=== PATIENT | male | born 1980 | race Hispanic/Latino ===

== ENCOUNTER 2019-05-19 16:46 | Emergency (ER) | payer BC, SELFPAY ==
[2019-05-19 17:24] LABS: Absolute Lymphocytes (CBC) 3.1 K/uL (0.7-4.9); Basophils % 0.6 % (0-1.3); Lymphocytes % 34.9 % (15.3-44.8); MPV 8.8 fL (7.6-11.3); RBC Red Blood Cell Count 5.03 M/uL (4.33-5.43)
--- NOTE | 2019-05-19 17:27 | RAD REPORT ---
EXAM DESCRIPTION: Maulik Single View05/19/2019 5:21 pm CLINICAL HISTORY: Chest pain COMPARISON: 2017 FINDINGS: The lungs appear clear of acute infiltrate. The heart is normal size IMPRESSION: No acute abnormalities displayed
[2019-05-19 17:32] LABS: Protime INR 0.97
[2019-05-19 17:40] LABS: ALT/SGPT 37 U/L (12-78); AST/SGOT 26 U/L (15-37); Albumin 3.8 g/dL (3.4-5.0); Alkaline Phosphatase 75 U/L (45-117); BUN Blood Urea Nitrogen 17 mg/dL (7-18); Bicarbonate 27 mmol/L (21-32); Bilirubin Direct 0.3 mg/dL (0-0.2); Bilirubin Total 1.6 mg/dL (0.2-1.0); Creatine Phosphokinase 186 U/L (39-308); Glucose Level 93 mg/dL (74-106); Magnesium 2.1 mg/dL (1.8-2.4); NT PRO-BNP 25 pg/mL (<125); Potassium 3.8 mmol/L (3.5-5.1); Protein, Total 7.4 g/dL (6.4-8.2); Sodium Level 140 mmol/L (136-145); Troponin (Emerg Dept Use Only) < 0.02 ng/mL (0.0-0.045)
[2019-05-19 17:43] LABS: Barbiturates NEGATIVE (NEGATIVE); Benzodiazepines NEGATIVE (NEGATIVE); Cocaine NEGATIVE (NEGATIVE); METHAMPHETAM NEGATIVE (NEGATIVE); Methadone NEGATIVE (NEGATIVE); Opiates NEGATIVE (NEGATIVE); Phencyclidine NEGATIVE (NEGATIVE); THC Cannibis NEGATIVE (NEGATIVE)
[2019-05-19 18:03] LABS: Urine Blood NEGATIVE (NEG); Urine Glucose NEGATIVE (NEG); Urine Protein NEGATIVE (NEG); Urine Specific Gravity 1.025 (1.005-1.030); Urine pH 6.5 (5.0-7.0)
[2019-05-19] MEDS ORDERED: NA CHLORIDE 0.9% 1,000 ML ONE (18:06)
--- NOTE | 2019-05-19 20:00 | RAD REPORT ---
EXAM DESCRIPTION: US - Abdomen Exam Limited - 05/19/2019 7:33 pm CLINICAL HISTORY: Abdominal pain./elevated bilirubin COMPARISON: None. FINDINGS: A 15 millimeter gallstone. Gallbladder wall borderline thickened The biliary tree is normal caliber. IMPRESSION: Cholelithiasis. Gallbladder wall is borderline thickened
--- NOTE | 2019-05-19 21:25 | ER ---
Nurse's Notes [facility] Name: Miguel Angel Pride Jr Age: 38 yrs Sex: Male : 1980 Arrival Date: 05/19/2019 Time: 16:52 Bed 4 Private MD: Diagnosis: Chest pain, unspecified;Cholelithiasis Presentation: 05/18 16:53 Chief complaint: EMS states: Pt reports intermittent chest pain that began around lunch ph time, had 3 episodes that went away after a few minutes, then had another episode that did not resolve, also reports SOB, pain worse w/ inspiration, denies N/V, 12 lead normal, BP initially slightly elevated \T\ 170s systolic, 324 ASA and nitro x 1 administered, pt denies pain upon arrival to ED, denies cardiac hx. Coronavirus screen: The patient has NOT traveled to a country currently being monitored by the CDC within the last 14 days. The patient has NOT had contact with any known and/or suspected case of coronavirus. Ebola Screen: No symptoms or risks identified at this time. Initial Sepsis Screen: Does the patient meet any 2 criteria? No. Patient's initial sepsis screen is negative. Does the patient have a suspected source of infection? No. Patient's initial sepsis screen is negative. Risk Assessment: Do you want to hurt yourself or someone else? Patient reports no desire to harm self or others. 16:53 Method Of Arrival: EMS: [facility] 16:53 Acuity: MARCIE 3 ph Historical: - Allergies: 16:59 No Known Allergies; ph - Home Meds: 16:59 None [Active]; ph - PMHx: 16:59 Anxiety; ph - Immunization history:: Adult Immunizations unknown. - Social history:: Smoking status: Patient denies any tobacco usage or history of. Patient/guardian denies using street drugs. Screenin:59 Abuse screen: Denies threats or abuse. Denies injuries from another. Nutritional ph screening: No deficits noted. Tuberculosis screening: No symptoms or risk factors identified. Fall Risk None identified. Assessment: 17:00 General: Appears in no apparent distress. comfortable, well groomed, Behavior is calm, ph cooperative, appropriate for age, Denies fever, feeling ill. Pain: Complains of pain in anterior aspect of left upper chest Pain does not radiate. Pain currently is 0 out of 10 on a pain scale. at worst was 8 out of 10 on a pain scale. Quality of pain is described as sharp, stabbing, Pain began approx 1200. Neuro: Level of Consciousness is awake, alert, obeys commands, Oriented to person, place, time, situation. Cardiovascular: Reports chest pain, shortness of breath, Capillary refill < 3 seconds in bilateral fingers Patient's skin is warm and dry. Chest pain quality is sharp, stabbing, is located in left anterior chest wall began 4 hours prior to arrival episodes are intermittent denies pain at this time. Respiratory: Airway is patent Respiratory effort is even, unlabored, Respiratory pattern is regular, symmetrical. Derm: Skin is intact, is healthy with good turgor, Skin is pink, warm \T\ dry. Musculoskeletal: Circulation, motion, and sensation intact. Range of motion: intact in all extremities. 18:16 Reassessment: Patient appears in no apparent distress at this time. Patient and/or ph family updated on plan of care and expected duration. Pain level reassessed. Patient is alert, oriented x 3, equal unlabored respirations, skin warm/dry/pink. Pt resting comfortably, VSS, denies pain at this time. 20:26 Reassessment: Patient appears in no apparent distress at this time. Patient and/or mg2 family updated on plan of care and expected duration. Pain level reassessed. Patient is alert, oriented x 3, equal unlabored respirations, skin warm/dry/pink. 21:02 Reassessment: repeat EKG and Troponin done. awaiting result. rv 21:38 Reassessment: Patient denies pain at this time. Patient states feeling better. mg2 Vital Signs: 16:53 BP 120 / 95; Pulse 64; Resp 18; Temp 97.3; Pulse Ox 96% on R/A; Weight 104.33 kg; ph Height 5 ft. 9 in. (175.26 cm); Pain 0/10; 16:58 BP 120 / 95; Pulse 64; Resp 18; Pulse Ox 99% on R/A; Pain 0/10; ph 18:17 BP 129 / 92; Pulse 71; Resp 18; Pulse Ox 99% on R/A; ph 20:19 Pulse 54; Resp 19; Pulse Ox 97% ; rv 20:25 BP 111 / 69; Pulse 58; Resp 18; Pulse Ox 95% on R/A; mg2 21:02 BP 106 / 57; Pulse 50; Resp 16; Pulse Ox 97% on R/A; rv 16:53 Body Mass Index 33.96 (104.33 kg, 175.26 cm) ph ED Course: 16:52 Patient arrived in ED. ph 16:52 Alyson Aleman FNP-C is PHCP. snw 16:52 Jimmie Denny MD is Attending Physician. snw 16:53 PHCP role handed off by Alyson Aleman FNP-C cp 16:53 Meño Crane PA is PHCP. cp 16:58 Triage completed. ph 16:59 Arm band placed on. ph 16:59 No provider procedures requiring assistance completed. Maintain EMS IV. Dressing ph intact. Good blood return noted. Site clean \T\ dry. Gauge \T\ site: 18 LAC. Patient maintains SpO2 saturation greater than 95% on room air. 17:00 Patient has correct armband on for positive identification. Placed in gown. Bed in low ph position. Call light in reach. Side rails up X2. monitor technician on. Pulse ox on. NIBP on. Door closed. Noise minimized. Warm blanket given. Head of bed elevated. 17:09 Robby Domingo, RN is Primary Nurse. em 17:21 XRAY Chest (1 view) In Process Unspecified. EDMS 18:22 EKG done, by ED staff, reviewed by Meño CORDERO. em1 19:34 US Abdomen Limited In Process Unspecified. EDMS 21:22 Hunter Rock MD is Referral Physician. cp 21:39 IV discontinued, intact, bleeding controlled, No redness/swelling at site. Pressure mg2 dressing applied. Administered Medications: 18:16 Drug: NS 0.9% 1000 ml Route: IV; Rate: 1 bolus; Site: left antecubital; ph 21:39 Follow up: Response: No adverse reaction; IV Intake: 1000ml mg2 Intake: 21:39 IV: 1000ml; Total: 1000ml. mg2 Outcome: 21:23 Discharge ordered by . cp 21:39 Discharged to home ambulatory, with family. mg2 21:39 Condition: stable 21:39 Discharge instructions given to patient, family, Instructed on discharge instructions, follow up and referral plans. medication usage, Demonstrated understanding of instructions, follow-up care, medications, Prescriptions given X 1. 21:39 Patient left the ED. mg2 Signatures: Dispatcher [employer] EDAlyson Ernandez, SAP BODS DEVELOPER-C SAP BODS DEVELOPER-Csnw Robby Domingo, RN RN Lauri Lozano Patricia, RN RN Meño Rodríguez PA PA cp [place], Michele, RN RN mg2 Joaquin Adams RN RN rv
--- NOTE | 2019-05-19 21:25 | EDPHYS ---
Physician Documentation [facility] Name: Miguel Angel Pride Jr Age: 38 yrs Sex: Male : 1980 Arrival Date: 05/19/2019 Time: 16:52 Bed 4 Private MD: ED Physician Jimmie Denny HPI: 05/18 17:00 This 38 yrs old Male presents to ER via EMS with complaints of Chest Pain. cp 17:00 The patient or guardian reports chest pain that is located primarily in the anterior cp chest wall, left. 17:00 The pain does not radiate. Associated signs and symptoms: Pertinent negatives: cp abdominal pain, cough, diaphoresis, dizziness, lower extremity pain, lower extremity swelling, near syncope, palpitations, recent travel, shortness of breath, syncope. The chest pain is described as sharp. Duration: The patient or guardian reports multiple episodes, that are intermittent. Modifying factors: The symptoms are alleviated by nothing. the symptoms are aggravated by nothing. Severity of pain: in the emergency department the pain has resolved and did so just prior to arrival, patient was given oral aspirin and nitro by EMS but reports pain resolved prior to being given medications. EMS care prior to arrival includes: aspirin, nitroglycerin, x 1. Historical: - Allergies: 16:59 No Known Allergies; ph - Home Meds: 16:59 None [Active]; ph - PMHx: 16:59 Anxiety; ph - Immunization history:: Adult Immunizations unknown. - Social history:: Smoking status: Patient denies any tobacco usage or history of. Patient/guardian denies using street drugs. ROS: 17:05 Constitutional: Negative for body aches, chills, fever, poor PO intake. cp 17:05 Eyes: Negative for injury, pain, redness, and discharge. cp 17:05 Cardiovascular: Positive for chest pain, Negative for edema, palpitations. cp 17:05 ENT: Negative for drainage from ear(s), ear pain, sore throat, difficulty swallowing, cp difficulty handling secretions. 17:05 Respiratory: Negative for cough, shortness of breath, wheezing. 17:05 Abdomen/GI: Negative for abdominal pain, nausea, vomiting, and diarrhea, constipation, black/tarry stool, rectal bleeding. 17:05 Back: Negative for pain at rest, pain with movement, radiated pain. 17:05 Skin: Negative for rash. 17:05 Neuro: Negative for headache, weakness. 17:05 All other systems are negative. Exam: 17:10 Constitutional: The patient appears in no acute distress, alert, awake, cp non-diaphoretic, non-toxic, well developed, well nourished. 17:10 Head/Face: Normocephalic, atraumatic. cp 17:10 Eyes: Periorbital structures: appear normal, Conjunctiva: normal, no exudate, no injection, Sclera: no appreciated abnormality, Lids and lashes: appear normal, bilaterally. 17:10 ENT: External ear(s): are unremarkable, Nose: is normal, Mouth: Lips: moist, Oral mucosa: pink and intact, moist, Posterior pharynx: is normal, airway is patent, no erythema, no exudate. 17:10 Chest/axilla: Inspection: normal, Palpation: is normal, no crepitus, no tenderness. 17:10 Cardiovascular: Rate: normal, Rhythm: regular. 17:10 Respiratory: the patient does not display signs of respiratory distress, Respirations: normal, no use of accessory muscles, no retractions, no splinting, no tachypnea, labored breathing, is not present, Breath sounds: are clear throughout, no decreased breath sounds, no stridor, no wheezing. 17:10 Abdomen/GI: Inspection: abdomen appears normal, Bowel sounds: active, all quadrants, Palpation: abdomen is soft and non-tender, in all quadrants, rebound tenderness, is not appreciated, voluntary guarding, is not appreciated, involuntary guarding, is not appreciated. 17:10 Back: pain, is absent, ROM is normal. 17:10 Skin: no rash present. 17:10 Neuro: Orientation: to person, place \T\ time. Mentation: is normal, Cerebellar function: is grossly normal, Motor: moves all fours, strength is normal, Sensation: is normal. 18:25 ECG was reviewed by the Attending Physician. cp 20:50 ECG was reviewed by the Attending Physician. cp Vital Signs: 16:53 BP 120 / 95; Pulse 64; Resp 18; Temp 97.3; Pulse Ox 96% on R/A; Weight 104.33 kg; ph Height 5 ft. 9 in. (175.26 cm); Pain 0/10; 16:58 BP 120 / 95; Pulse 64; Resp 18; Pulse Ox 99% on R/A; Pain 0/10; ph 18:17 BP 129 / 92; Pulse 71; Resp 18; Pulse Ox 99% on R/A; ph 20:19 Pulse 54; Resp 19; Pulse Ox 97% ; rv 20:25 BP 111 / 69; Pulse 58; Resp 18; Pulse Ox 95% on R/A; mg2 21:02 BP 106 / 57; Pulse 50; Resp 16; Pulse Ox 97% on R/A; rv 16:53 Body Mass Index 33.96 (104.33 kg, 175.26 cm) ph MDM: 16:55 Patient medically screened. cp 21:23 Data reviewed: vital signs, nurses notes, lab test result(s), EKG, radiologic studies, cp plain films. 21:23 Differential diagnosis: abnormal EKG, acute myocardial infarction, acute pericarditis, cp costochondritis, pleurisy, pneumonia, pneumothorax, pulmonary embolus. Test interpretation: by ED physician or midlevel provider: ECG, plain radiologic studies, chest xray negative for infiltrates. Counseling: I had a detailed discussion with the patient and/or guardian regarding: the historical points, exam findings, and any diagnostic results supporting the discharge/admit diagnosis, lab results, radiology results, the need for outpatient follow up, an technical sourcing recruiter, to return to the emergency department if symptoms worsen or persist or if there are any questions or concerns that arise at home. Response to treatment: the patient's symptoms have resolved after treatment, the patient's pain is gone, and as a result, I will discharge patient. 21:23 Special discussion: Based on the patient's history, exam, and Dx evaluation, there is cp no indication for emergent intervention or inpatient Tx. It is understood by the patient/guardian that if the Sx's persist or worsen they need to return immediately for re-evaluation. 05/18 16:53 Order name: Basic Metabolic Panel; Complete Time: 18:16 snw 05/18 18:16 Interpretation: Normal except: CL 108; GFR 75. cp 05/18 16:53 Order name: CBC with Diff; Complete Time: 17:35 snw 05/18 17:35 Interpretation: Within normal limits. cp 05/18 16:53 Order name: LFT's; Complete Time: 18:16 snw 05/18 18:16 Interpretation: Normal except: BILIT 1.6; BILID 0.3; GLOB 3.6. cp 03/ 16:53 Order name: Magnesium; Complete Time: 18:16 snw 05/18 16:53 Order name: NT PRO-BNP; Complete Time: 18:16 snw 05/18 16:53 Order name: PT-INR; Complete Time: 17:35 snw 05/18 16:53 Order name: Troponin (emerg Dept Use Only); Complete Time: 18:16 snw 05/18 16:53 Order name: XRAY Chest (1 view); Complete Time: 18:16 snw 05/18 16:53 Order name: DD; Complete Time: 17:35 snw 05/18 16:54 Order name: UDS; Complete Time: 18:16 cp 05/18 16:54 Order name: CPK; Complete Time: 18:16 cp 05/18 17:29 Order name: Urine Dipstick--Ancillary (enter results); Complete Time: 18:16 bd 05/18 19:04 Order name: US Abdomen Limited; Complete Time: 20:08 cp 05/18 20:08 Interpretation: Report reviewed. cp 05/18 20:36 Order name: Troponin I; Complete Time: 21:22 cp 05/18 21:22 Interpretation: Reviewed. cp 05/18 16:53 Order name: EKG; Complete Time: 16:54 snw 05/18 16:53 Order name: Cardiac monitoring; Complete Time: 17:02 snw 05/18 16:53 Order name: EKG - Nurse/Tech; Complete Time: 17:32 snw 05/18 16:53 Order name: IV Saline Lock; Complete Time: 17:02 snw 05/18 16:53 Order name: Labs collected and sent; Complete Time: 17:32 snw 05/18 16:53 Order name: O2 Per Protocol; Complete Time: 17:02 snw 05/18 16:53 Order name: O2 Sat Monitoring; Complete Time: 17:02 snw 05/18 19:04 Order name: NPO; Complete Time: 19:12 cp 05/18 20:36 Order name: EKG; Complete Time: 20:37 cp 05/18 20:36 Order name: EKG - Nurse/Tech; Complete Time: 20:51 cp EC:25 Rate is 60 beats/min. Rhythm is regular. IL interval is normal. QRS interval is cp prolonged at 108 msec. QT interval is normal. T waves are Inverted in lead III. Interpreted by me. Reviewed by me. 20:50 Rate is 49 beats/min. Rhythm is regular. IL interval is normal. QRS interval is normal. cp QT interval is normal. T waves are Flattened in lead V2. Interpreted by me. Reviewed by me. Administered Medications: 18:16 Drug: NS 0.9% 1000 ml Route: IV; Rate: 1 bolus; Site: left antecubital; ph 21:39 Follow up: Response: No adverse reaction; IV Intake: 1000ml mg2 Disposition: 05/19 10:51 Co-signature as Attending Physician, Jimmie Denny MD I agree with the assessment and kdr plan of care. Disposition: 05/19/19 21:23 Discharged to Home. Impression: Chest pain, unspecified, Cholelithiasis. - Condition is Stable. - Discharge Instructions: Nonspecific Chest Pain, Cholelithiasis, Aspirin and Your Heart. - Prescriptions for Ibuprofen 800 mg Oral Tablet - take 1 tablet by ORAL route every 8 hours As needed take with food; 30 tablet. - Work release form, Medication Reconciliation Form, Thank You Letter, Antibiotic Education, Prescription Opioid Use form. - Follow up: Hunter Rock MD; When: Tomorrow; Reason: Recheck today's complaints. - Problem is new. - Symptoms have improved. Signatures: Dispatcher [employer] EDJimmie Altamirano MD MD [facility] Alyson Aleman, ENVIRONMENTAL HEALTH SAFETY ENGINEER-C ENVIRONMENTAL HEALTH SAFETY ENGINEER-[place] Gavi Chow RN RN ph Meño Crane PA PA cp Antonio Ahumada, COLE RN mg2 Corrections: (The following items were deleted from the chart) 03 21:39 21:23 05/19/2019 21:23 Discharged to Home. Impression: Chest pain, unspecified; mg2 Cholelithiasis. Condition is Stable. Forms are Medication Reconciliation Form, Thank You Letter, Antibiotic Education, Prescription Opioid Use. Follow up: Hunter Rock; When: Tomorrow; Reason: Recheck today's complaints. Problem is new. Symptoms have improved. cp
[2019-05-19 21:48] VITALS: TEMP 97.3
[2019-05-19 21:55] VITALS: BP 106/57; O2SAT 97
--- NOTE | 2019-05-20 11:38 | EKG ---
Test Date: 2019-05-19 Test Time: 20:43:23 Rug Dry Room Attendant: ALE MEASUREMENT RESULTS: Intervals: Rate: 49 TX: 140 QRSD: 84 QT: 424 QTc: 383 [place]: P: 27 TX: 140 QRS: -1 T: 10 INTERPRETIVE STATEMENTS: Sinus bradycardia with sinus arrhythmia Cannot rule out Inferior infarct, age undetermined Abnormal ECG Compared to ECG 05/19/2019 18:17:20 Myocardial infarct finding now present Sinus rhythm no longer present Electronically Signed On 05-20-19 11:36:45 SURVEY SUPERINTENDENT by Olvin Maciel
--- NOTE | 2019-05-20 11:39 | EKG ---
Test Date: 2019-05-19 Test Time: 18:17:20 Reporter Anchor: REBEL MEASUREMENT RESULTS: Intervals: Rate: 60 NV: 158 QRSD: 108 QT: 422 QTc: 422 [place]: P: 35 NV: 158 QRS: -21 T: 13 INTERPRETIVE STATEMENTS: Normal sinus rhythm Normal ECG Compared to ECG 04/25/2017 08:06:40 No significant changes Electronically Signed On 05-20-19 11:36:53 PONY WORKER by Olvin Maciel
== END 2019-05-19 21:39 | disposition home or self-care (01) ==
LOC: ER 16:46
DX: R07.9 Chest pain, unspecified (principal); K80.20 Calculus of gallbladder without cholecystitis without obstruction
CPT/HCPCS: 36415; 71045; 76705; 80048; 80076; 80307; 81003; 82550; 83735; 83880; 84484; 85025; 85379; 85610; 93005; 99285; J7030

== ENCOUNTER 2020-08-01 10:17 | Emergency (ER) | payer OTHER, SELFPAY ==
[2020-08-01 10:47] LABS: Absolute Lymphocytes (CBC) 1.4 K/uL (0.7-4.9); Basophils % 0.5 % (0-1.3); Hematocrit 47.1 % (39.6-49.0); Lymphocytes % 12.4 % (15.3-44.8); MPV 8.9 fL (7.6-11.3); RBC Red Blood Cell Count 5.15 M/uL (4.33-5.43)
[2020-08-01 10:57] LABS: Protime INR 0.97
[2020-08-01] MEDS ORDERED: NA CHLORIDE 0.9% 1,000 ML ONE (11:00)
[2020-08-01 11:05] LABS: ALT/SGPT 58 U/L (12-78); AST/SGOT 85 U/L (15-37); Albumin 3.8 g/dL (3.4-5.0); Alkaline Phosphatase 88 U/L (45-117); BUN Blood Urea Nitrogen 15 mg/dL (7-18); Bicarbonate 25 mmol/L (21-32); Bilirubin Direct 0.4 mg/dL (0-0.2); Bilirubin Total 0.9 mg/dL (0.2-1.0); Glucose Level 111 mg/dL (74-106); Magnesium 2.1 mg/dL (1.8-2.4); NT PRO-BNP 21 pg/mL (<125); Potassium 3.6 mmol/L (3.5-5.1); Protein, Total 7.3 g/dL (6.4-8.2); Sodium Level 139 mmol/L (136-145); Troponin (Emerg Dept Use Only) < 0.02 ng/mL (0.0-0.045)
--- NOTE | 2020-08-01 11:06 | RAD REPORT ---
EXAM DESCRIPTION: RAD - Chest Single View - 08/01/2020 10:52 am CLINICAL HISTORY: CHEST PAIN COMPARISON: Portable May 19, 2019 TECHNIQUE: AP portable chest image was obtained 08/01/2020 10:52 am . FINDINGS: Lung volumes are low compared to the prior study. No peripheral mass or consolidation. No failure or volume overload. Heart size is upper normal but stable. No abnormal vascular engorgement. Trachea is midline. No measu rable pleural effusion and no pneumothorax. No acute bony abnormality seen. No acute aortic findings suspected. IMPRESSION: No acute cardiopulmonary process. No suspicious change from comparison.
--- NOTE | 2020-08-01 12:05 | RAD REPORT ---
EXAM DESCRIPTION: US - Abdomen Exam Limited - 08/01/2020 11:44 am CLINICAL HISTORY: EPIGASTRIC PAIN COMPARISON: Abdomen Exam Limited dated 05/19/2019 FINDINGS: A single mobile 2 centimeter gallstone is identified. There is no wall thickening or peric holecystic fluid. No common duct stone or biliary tree dilatation identified. IMPRESSION: Single 2 centimeter mobile gallstone.
--- NOTE | 2020-08-01 13:29 | EDPHYS ---
Physician Documentation [facility] Name: Miguel Angel Pride Jr Age: 39 yrs Sex: Male : 1980 Arrival Date: 08/01/2020 Time: 10:18 Bed 2 Private MD: Hunter Rock ED Physician Pedro Christian HPI: 08/01 10:33 This 39 yrs old Male presents to ER via EMS with complaints of Chest Pain. cp 10:33 The patient or guardian reports chest pain that is located primarily in the substernal cp area, epigastric area. 10:33 The pain radiates to back. The chest pain is described as sharp. Duration: The patient cp or guardian reports a single episode, that is now resolved. Severity of pain: in the emergency department the pain has resolved. 10:33 Patient reports pain started in epigastric area while at work this morning and while cp eating sunflower seeds. Pain then radiated to back and lower substernal area of chest. EMS administered fluids and pain now resolved. Historical: - Allergies: 10:20 No Known Allergies; sv - PMHx: 10:20 Anxiety; sv - PSHx: 10:20 None; sv - Immunization history:: Client reports having NOT received the Covid vaccine. - Social history:: Smoking status: Patient denies any tobacco usage or history of. Patient/guardian denies using street drugs. ROS: 10:35 Constitutional: Negative for body aches, chills, fever, poor PO intake. cp 10:35 Eyes: Negative for injury, pain, redness, and discharge. cp 10:35 ENT: Negative for ear pain, sore throat, difficulty swallowing, difficulty handling secretions. 10:35 Cardiovascular: Positive for chest pain, of the lower mid chest, Negative for edema, palpitations. 10:35 Respiratory: Positive for shortness of breath, Negative for cough, wheezing. 10:35 Abdomen/GI: Positive for abdominal pain, of the epigastric area, Negative for vomiting, diarrhea, constipation, anorexia. 10:35 Back: Positive for radiated pain. 10:35 : Negative for urinary symptoms. 10:35 Neuro: Negative for altered mental status, headache, syncope, weakness. 10:35 All other systems are negative. Exam: 10:30 ECG was reviewed by the Attending Physician. cp 10:40 Constitutional: The patient appears in no acute distress, alert, awake, comfortable, cp non-diaphoretic, non-toxic, well developed, well nourished. 10:40 Head/Face: Normocephalic, atraumatic. cp 10:40 Eyes: Periorbital structures: appear normal, Conjunctiva: normal, no exudate, no injection, Sclera: no appreciated abnormality, Lids and lashes: appear normal, bilaterally. 10:40 ENT: External ear(s): are unremarkable, Nose: is normal, Mouth: Lips: moist, Oral mucosa: moist, Posterior pharynx: Airway: no evidence of obstruction, patent. 10:40 Chest/axilla: Inspection: normal, Palpation: is normal, no crepitus, no tenderness. 10:40 Cardiovascular: Rate: normal, Rhythm: regular. 10:40 Respiratory: the patient does not display signs of respiratory distress, Respirations: normal, no use of accessory muscles, no retractions, labored breathing, is not present, Breath sounds: are clear throughout, no decreased breath sounds. 10:40 Abdomen/GI: Inspection: abdomen appears normal, Bowel sounds: active, all quadrants, Palpation: soft, in all quadrants, mild abdominal tenderness, in the epigastric area and right upper quadrant, rebound tenderness, is not appreciated, voluntary guarding, is not appreciated, involuntary guarding, is not appreciated. 10:40 Back: CVA tenderness, is absent. Vital Signs: 10:18 Weight 108.86 kg; Height 5 ft. 9 in. (175.26 cm); Pain 0/10; sv 10:19 BP 135 / 91; Pulse 87; Resp 16; Temp 98.3(O); Pulse Ox 98% on R/A; hb 11:15 BP 110 / 77; Pulse 71; Resp 17; Pulse Ox 95% on R/A; tw2 12:38 BP 124 / 90; Pulse 65; Resp 20; Pulse Ox 100% on R/A; tw2 10:18 Body Mass Index 35.44 (108.86 kg, 175.26 cm) sv MDM: 10:30 Differential diagnosis: abnormal EKG, acute myocardial infarction, anxiety, cp cholecystitis, Cholelithiasis esophagitis, gastritis, pancreatitis. 10:34 Patient medically screened. cp 13:28 Data reviewed: vital signs, nurses notes, lab test result(s), radiologic studies, plain cp films, ultrasound. 13:28 Test interpretation: by ED physician or midlevel provider: ECG, plain radiologic cp studies. Counseling: I had a detailed discussion with the patient and/or guardian regarding: the historical points, exam findings, and any diagnostic results supporting the discharge/admit diagnosis, lab results, radiology results, the need for outpatient follow up, for definitive care, a general surgeon, to return to the emergency department if symptoms worsen or persist or if there are any questions or concerns that arise at home. Response to treatment: the patient's symptoms have markedly improved after treatment, VSS. Pain improved. Discussed results of labs, EKG and testing. Will discharge to home for continued monitoring and recommend f/u with general surgery. 08/01 10:19 Order name: Basic Metabolic Panel cp 08/01 10:19 Order name: CBC with Diff cp 08/01 10:19 Order name: LFT's cp 08/01 10:19 Order name: Magnesium cp 08/01 10:19 Order name: NT PRO-BNP cp 08/01 10:19 Order name: PT-INR cp 08/01 10:19 Order name: Troponin (emerg Dept Use Only) cp 08/01 10:35 Order name: Lipase cp 08/01 10:48 Order name: CBC with Automated Diff; Complete Time: 11:22 EDTN 08/01 11:22 Interpretation: Normal except: WBC 11.40; CORRIE% 80.8; LYM% 12.4; NEUT A 9.2. cp 08/01 11:01 Order name: Protime (+INR); Complete Time: 11:22 EDTN 08/01 11:01 Order name: Lipase; Complete Time: 11:22 EDTN 08/01 11:05 Order name: Basic Metabolic Panel; Complete Time: 11:22 EDMS 08/01 11:22 Interpretation: Normal except: CL 109; GLUC 111; GFR 87. cp 08/01 11:05 Order name: Liver (Hepatic) Function; Complete Time: 11:22 EDMS 08/01 11:24 Interpretation: Normal except: AST 85; BILID 0.4. cp 08/01 11:05 Order name: Troponin (Emerg Dept Use Only); Complete Time: 11:22 EDTN 08/01 11:24 Interpretation: TROPED < 0.02; Reviewed. cp 08/01 10:19 Order name: XRAY Chest (1 view) 08/01 10:19 Order name: EKG; Complete Time: 10:21 08/01 10:19 Order name: Cardiac monitoring; Complete Time: 10:42 cp 08/01 10:19 Order name: EKG - Nurse/Tech; Complete Time: 10:42 cp 08/01 10:19 Order name: IV Saline Lock; Complete Time: 10:42 cp 08/01 10:19 Order name: Labs collected and sent; Complete Time: 10:42 cp 08/01 10:19 Order name: O2 Per Protocol; Complete Time: 10:42 cp 08/01 11:05 Order name: NT PRO-BNP; Complete Time: 11:22 EDMS 08/01 11:05 Order name: Magnesium; Complete Time: 11:22 EDMS 08/01 11:06 Order name: RAD; Complete Time: 11:22 EDMS 08/01 11:23 Order name: US Abdomen Limited: RUQ/epigastric 08/01 12:06 Order name: US; Complete Time: 12:33 EDMS 08/01 12:35 Interpretation: Report reviewed. 08/01 10:19 Order name: O2 Sat Monitoring; Complete Time: 10:42 cp EC:30 Rate is 81 beats/min. Rhythm is regular. MS interval is normal. QRS interval is cp prolonged at 110 msec. QT interval is normal. T waves are Inverted in lead aVR. Interpreted by me. Reviewed by me. Administered Medications: 10:47 Drug: NS 0.9% 1000 ml Route: IV; Rate: 1 bolus; Site: left forearm; hb 13:28 Drug: Bentyl (dicyclomine) 20 mg Route: PO; tw2 13:28 Drug: GI Cocktail without - (Maalox Suspension 30 ml, Lidocaine Liquid 2 % 15 tw2 ml) Route: PO; 13:28 Drug: TORadol - (ketorolac) 15 mg Route: IVP; Site: left antecubital; tw2 Disposition: 14:24 Co-signature as Attending Physician, Pedro Christian MD. rn Disposition: 08/01/20 13:29 Discharged to Home. Impression: Cholelithiasis. - Condition is Stable. - Discharge Instructions: Biliary Colic, Adult, Cholelithiasis. - Prescriptions for Bentyl 20 mg Oral Tablet - take 1 tablet by ORAL route every 6 hours As needed; 30 tablet. Zofran 4 mg Oral Tablet - take 1 tablet by ORAL route every 12 hours As needed; 20 tablet. - Medication Reconciliation Form, Thank You Letter, Antibiotic Education, Prescription Opioid Use, Work release form, Family Work Release form. - Follow up: Russ Mosquera MD; When: 1 - 2 days; Reason: cholelithiasis. - Problem is new. - Symptoms have improved. Signatures: Dispatcher [employer] Angelica Quinteros, RN RN Pedro Christian MD MD rn Page, Corey, PA PA cp Elvia Galindo RN RN Liliya Maki RN RN tw2 Corrections: (The following items were deleted from the chart) 13:42 13:29 08/01/2020 13:29 Discharged to Home. Impression: Cholelithiasis. Condition is hb Stable. Forms are Medication Reconciliation Form, Thank You Letter, Antibiotic Education, Prescription Opioid Use. Follow up: Russ Mosquera; When: 1 - 2 days; Reason: cholelithiasis. Problem is new. Symptoms have improved. cp
--- NOTE | 2020-08-01 13:29 | ER ---
Nurse's Notes [facility] Name: Miguel Angel Pride Jr Age: 39 yrs Sex: Male : 1980 Arrival Date: 08/01/2020 Time: 10:18 Bed 2 Private MD: Hunter Rock Diagnosis: Cholelithiasis Presentation: 08/01 10:18 Chief complaint: EMS states: chest pain that started while working, worse with movement sv started today. BP 140/100s (pt stated normal) ASA 324 mg PO, 1/2" Nitro, EKG-SR. Coronavirus screen: Client denies travel out of the [place] in the last 14 days. At this time, the client does not indicate any symptoms associated with coronavirus-19. Ebola Screen: No symptoms or risks identified at this time. Risk Assessment: Do you want to hurt yourself or someone else? Patient reports no desire to harm self or others. Onset of symptoms was August 01, 2020. 10:18 Method Of Arrival: EMS: [facility] sv 10:18 Acuity: MARCIE 3 sv 10:18 Initial Sepsis Screen: Does the patient meet any 2 criteria? No. Patient's initial tw2 sepsis screen is negative. Does the patient have a suspected source of infection? No. Patient's initial sepsis screen is negative. Triage Assessment: 10:20 General: Appears in no apparent distress. Behavior is calm, cooperative, appropriate tw2 for age. Pain: Complains of pain in chest. EENT: No signs and/or symptoms were reported regarding the EENT system. Neuro: Level of Consciousness is awake, alert, obeys commands, Oriented to person, place, time, situation. Cardiovascular: Capillary refill < 3 seconds Patient's skin is warm and dry. Respiratory: Airway is patent Respiratory effort is even, unlabored, Respiratory pattern is regular, symmetrical. GI: Abdomen is round non-distended. : No signs and/or symptoms were reported regarding the genitourinary system. Derm: No signs and/or symptoms reported regarding the dermatologic system. Musculoskeletal: Range of motion: intact in all extremities. Historical: - Allergies: 10:20 No Known Allergies; sv - PMHx: 10:20 Anxiety; sv - PSHx: 10:20 None; sv - Immunization history:: Client reports having NOT received the Covid vaccine. - Social history:: Smoking status: Patient denies any tobacco usage or history of. Patient/guardian denies using street drugs. Screenin:46 Abuse screen: Denies threats or abuse. Nutritional screening: No deficits noted. tw2 Tuberculosis screening: No symptoms or risk factors identified. Fall Risk None identified. Assessment: 10:45 Reassessment: xray at bedside at this time. tw2 12:38 Reassessment: Patient appears in no apparent distress at this time. No changes from tw2 previously documented assessment. Patient and/or family updated on plan of care and expected duration. Pain level reassessed. Patient is alert, oriented x 3, equal unlabored respirations, skin warm/dry/pink. 13:41 Reassessment: Patient appears in no apparent distress at this time. Patient and/or hb family updated on plan of care and expected duration. Pain level reassessed. Patient is alert, oriented x 3, equal unlabored respirations, skin warm/dry/pink. Patient states symptoms have improved. Vital Signs: 10:18 Weight 108.86 kg; Height 5 ft. 9 in. (175.26 cm); Pain 0/10; sv 10:19 BP 135 / 91; Pulse 87; Resp 16; Temp 98.3(O); Pulse Ox 98% on R/A; hb 11:15 BP 110 / 77; Pulse 71; Resp 17; Pulse Ox 95% on R/A; tw2 12:38 BP 124 / 90; Pulse 65; Resp 20; Pulse Ox 100% on R/A; tw2 10:18 Body Mass Index 35.44 (108.86 kg, 175.26 cm) sv ED Course: 10:18 Patient arrived in ED. am2 10:18 Hunter Rock MD is Private Physician. am2 10:18 Bed in low position. Call light in reach. satellite project site monitor on. Pulse ox on. NIBP on. tw2 10:19 Meño Crane PA is PHCP. cp 10:19 Pedro Christian MD is Attending Physician. cp 10:19 Triage completed. sv 10:20 Arm band placed on. sv 10:41 Liliya Maki, COLE is Primary Nurse. tw2 10:46 Patient maintains SpO2 saturation greater than 95% on room air. tw2 10:47 Maintain EMS IV. Dressing intact. Good blood return noted. Site clean \\T\\ dry. Gauge \\T\\ tw 2 site: 20 g LEFT FA. 11:29 Lipase Sent. sv 11:29 Troponin (emerg Dept Use Only) Sent. sv 11:29 PT-INR Sent. sv 11:29 NT PRO-BNP Sent. sv 11:29 Magnesium Sent. sv 11:29 LFT's Sent. sv 11:29 CBC with Diff Sent. sv 11:29 Basic Metabolic Panel Sent. sv 13:28 Russ Mosquera MD is Referral Physician. cp 13:41 No provider procedures requiring assistance completed. IV discontinued, intact, hb bleeding controlled, No redness/swelling at site. Administered Medications: 10:47 Drug: NS 0.9% 1000 ml Route: IV; Rate: 1 bolus; Site: left forearm; hb 13:28 Drug: Bentyl (dicyclomine) 20 mg Route: PO; tw2 13:28 Drug: GI Cocktail without - (Maalox Suspension 30 ml, Lidocaine Liquid 2 % 15 tw2 ml) Route: PO; 13:28 Drug: TORadol - (ketorolac) 15 mg Route: IVP; Site: left antecubital; tw2 Outcome: 13:29 Discharge ordered by MD. cp 13:41 Discharged to home ambulatory, with significant other. hb 13:41 Condition: stable 13:41 Discharge instructions given to patient, significant other, Instructed on discharge instructions, follow up and referral plans. medication usage, Demonstrated understanding of instructions, follow-up care, medications, Prescriptions given X 2. 13:42 Patient left the ED. Signatures: Angelica White RN COLE Meño Crane PA PA cp Elvia Galindo RN RN Liliya Maki RN RN tw2 Nasreen Solitario am2 Corrections: (The following items were deleted from the chart) 10:48 10:48 General: Appears tw2 tw2
[2020-08-01] MEDS ORDERED: MAGNES/ALUMIN/SIMET 30ML UCUP ONE (13:42)
[2020-08-01] MEDS ORDERED: DICYCLOMINE HCL 10 MG CAP ONE (13:42)
[2020-08-01] MEDS ORDERED: KETOROLAC 30 MG/ML INJ ONE (13:43)
[2020-08-01] MEDS ORDERED: LIDOCAINE VISCOUS 2% SOLN 15 ML UDC ONE (13:43)
[2020-08-01 13:48] VITALS: TEMP 98.3
[2020-08-01 13:50] VITALS: BP 124/90; O2SAT 100
--- NOTE | 2020-08-02 08:45 | EKG ---
Test Date: 2020-08-01 Test Time: 10:21:07 Healthcare Science Specialist: HB MEASUREMENT RESULTS: Intervals: Rate: 81 DC: 166 QRSD: 110 QT: 388 QTc: 450 [place]: P: 27 DC: 166 QRS: -32 T: 16 INTERPRETIVE STATEMENTS: Normal sinus rhythm Left axis deviation Incomplete right bundle branch block Minimal voltage criteria for LVH, may be normal variant Cannot rule out Anterior infarct, age undetermined Abnormal ECG Compared to ECG 05/19/2019 20:43:23 Left-axis deviation now present Incomplete right bundle-branch block now present Left ventricular hypertrophy now present Sinus bradycardia no longer present Sinus arrhythmia no longer present Myocardial infarct finding still present Electronically Signed On 08-02-20 08:41:46 CDT by Olvin Maciel
== END 2020-08-01 13:42 | disposition home or self-care (01) ==
LOC: ER 10:17
DX: K80.20 Calculus of gallbladder without cholecystitis without obstruction (principal)
CPT/HCPCS: 85025; 80048; 36415; 83735; 85610; 80076; 84484; 83690; 83880; 71045; 76705; J7030; 93005; 96374; 99285

== ENCOUNTER 2020-08-28 07:26 | Day surgery (SDC) | payer OTHER ==
[2020-08-24 16:14] LABS: Absolute Lymphocytes (CBC) 1.8 K/uL (0.7-4.9); Basophils % 0.6 % (0-1.3); Hematocrit 52.1 % (39.6-49.0); Lymphocytes % 21.6 % (15.3-44.8); MPV 9.9 fL (7.6-11.3); RBC Red Blood Cell Count 5.65 M/uL (4.33-5.43)
[2020-08-24 16:16] LABS: Bilirubin Direct 0.3 mg/dL (0-0.2); Bilirubin Total 1.4 mg/dL (0.2-1.0); Potassium 3.7 mmol/L (3.5-5.1); Protein, Total 7.8 g/dL (6.4-8.2)
[2020-08-28] MEDS ORDERED: Ringers Lactate 1,000 ML IV ONE (08:10)
[2020-08-28] MEDS ORDERED: LIDOCAINE 1% MPF 5 ML VIAL ONE (08:21)
[2020-08-28] MEDS ORDERED: dexAMETHasone 10 MG/ML VIAL ONE (08:21)
[2020-08-28] MEDS ORDERED: propofoL 200 MG/20 ML VIAL IV ONE (08:21)
[2020-08-28] MEDS ORDERED: FENTANYL CITR 100 MCG/2 ML ONE (08:21)
[2020-08-28] MEDS ORDERED: MIDAZOLAM HCL 2 MG/2 ML INJ ONE (08:21)
[2020-08-28] MEDS ORDERED: ROCURONIUM 50 MG/5 ML VIAL IV ONE (08:22)
[2020-08-28] MEDS ORDERED: CELECOXIB 100 MG CAPSULE ONE (08:30)
[2020-08-28] MEDS ORDERED: ACETAMINOPHEN 500 MG TAB ONE (08:30)
[2020-08-28] MEDS ORDERED: CEFOXITIN/SWI 1gm 1 GM/10 ML SYR ONE (08:49)
--- NOTE | 2020-08-28 09:24 | P.BOP ---
Preoperative diagnosis: RUQ abd pain Postoperative diagnosis: same Primary procedure: Laparoscopic cholecystectomy Estimated blood loss: <10cc Specimen: gb Findings: as above Anesthesia: General Complications: None Transferred to: Recovery Room Condition: Good
[2020-08-28] MEDS ORDERED: KETOROLAC 30 MG/ML INJ ONE (09:32)
[2020-08-28] MEDS: FENTANYL CITR 100 MCG/2 ML ONE ×2 (09:47→09:55)
--- NOTE | 2020-08-28 09:53 | OP ---
Date of Procedure: 08/28/2020 Surgeon: Nilesh Tellez MD Costume Shop Manager: None. Preoperative Diagnoses: Right upper quadrant abdominal pain, symptomatic cholelithiasis. Postoperative Diagnoses: Right upper quadrant abdominal pain, symptomatic cholelithiasis. Procedure: Laparoscopic cholecystectomy. Estimated Blood Loss: Less than 10 mL. Specimen: Gallbladder. Indications: This is the case of a 39-year-old patient, who comes to us with above diagnosis. Fully explained the benefits, alternatives, and risks of laparoscopic possible open cholecystectomy, which include, but not limited to infection, bleeding, damage to adjacent structures, anesthesia complicat ion, choledocholithiasis, bile leak, pancreatitis, SC, and even . He also understands this may not relieve his symptoms. He might need more than one surgical intervention. He understood and sign ed a consent. Procedure In Detail: The patient was brought to the operating room, placed in supine position. Anes thesia was done without complication. Abdominal area was prepped and draped in a sterile fashion. M arcaine 0.5% was injected for local anesthetic followed by sharp incision of the skin in the infraumb ilical region. Incision was carried down to fascia, which was opened under direct vision. Peritoneu m was encountered, opened under direct vision. Vicryl #1 was placed inside the fascia. Faye troca r was carefully introduced. No bleeding was obtained. I placed 3 more trocars, 5 mm each one of the m, 1 in epigastric area, 2 in the right upper quadrant under direct visualization. This allowed me t o put a grasper in the fundus of the gallbladder, another grasper in the infundibulum after pneumoper itoneum was obtained. The gallbladder was retracted in the inferolateral fashion exposing the triang le of Calot and obtaining critical view. The cystic duct and cystic artery were clearly isolated and freed circumferentially, and a connection between those and the gallbladder were clearly identified. I proceeded to ligate those by using at least 3 clips proximal, 1 clip distal, ligation in the midd le. Same was done with the cystic artery. No bile leak. No bleeding. The gallbladder was removed from liver using Bovie cauterizer and removed from abdominal cavity using EndoCatch through the umbil ical incision. The area was inspected once again. No bile leak. No bleeding. At that moment, I pr oceeded to remove the trocars under direct vision, deflated pneumoperitoneum, closed the fascia with #1 Vicryl, irrigated subcutaneous tissue, closed with 3-0 chromic, and skin in subcuticular fashion w ith 3-0 chromic and Steri-Strips on top. Sponge counts and instrument counts correct. The patient t olerated the procedure well. The patient was sent to Recovery in stable condition. Disposition: Home. Activity: As tolerated. No heavy lifting. Plan: Follow up in my office in 1 week. Call for appointment at [phone]. Keep area dry until next doctor visit. Medications: Tylenol No. 3 q.4 hours p.r.n. pain. JUAN/JHONY Voice ID: [id number] Report ID: [id number]
[2020-08-28] MEDS ORDERED: CODEINE 30MG/APAP 300MG TAB PO ONE (10:33)
[2020-08-28 10:40] VITALS: BP 142/84; TEMP 97.7; O2SAT 99
[2020-08-28] MEDS ORDERED: CODEINE 30MG/APAP 300MG TAB ONE (10:52)
== END 2020-08-28 11:05 | disposition home or self-care (01) ==
LOC: OR 07:26
PROVIDERS: ATTEND Surgery
PROC: 0FT44ZZ Resection of Gallbladder, Percutaneous Endoscopic Approach (ICD-10-PCS; principal; 2020-08-28 08:30)
DX: K80.10 Calculus of gallbladder with chronic cholecystitis without obstruction (principal); Z20.822 Contact with and (suspected) exposure to COVID-19
CPT/HCPCS: 85025; 80048; 36415; 82150; 80076; 88304; 83690; 47562; U0003; J2704; J2250; J3010 ×2; J1100; J7120